=== PATIENT | female | born 1955 | race Caucasian/White ===

== ENCOUNTER 2017-03-18 09:08 | Outpatient (CLI) | payer OTHER ==
--- OUTSIDE RECORDS SUMMARY | 2017-03-27 13:38 | XMS | Clinical Summary ---
:1955 Author Organization [facility] Address [address] [place] [address] Phone Care Team Providers Name Role Phone , Primary Care Provider Unavailable Allergies Not on File Current Medications Not on file Active Problems Not on file Social History Tobacco Use Types Packs/Day Years Used Date Never Assessed Sex Assigned at Date Recorded Not on file Last Filed Vital Signs Not on file Plan of Treatment Not on file Results Not on filefrom Last 3 Months
--- NOTE | 2017-04-06 16:17 | MMO ---
BILATERAL MAMMOGRAMS 03/18/17 HISTORY: Screening mammography. COMPARISON: Prior outside studies from [facility] dated 03/14/12. FINDINGS: Heterogeneously dense fibroglandular tissue and benign appearing calcifications are again demonstra luda. Multiple partially obscured oval and lobular isodense nodules of varying size throughout each breast are stable and consistent with a benign process. Metallic marker in the left breast indicates region of prior biopsy. There is no new dominant mass or suspicious calcifications. The study was evaluated with the assistance of computer aided detection. IMPRESSION: BI-RADS 2: Benign Finding(s) Routine annual screening mammography (for women over age 40). POS: [facility]
== END 2017-03-18 09:09 | disposition home or self-care (01) ==
LOC: MAMMO 09:08
PROVIDERS: ATTEND Family Medicine
DX: Z12.31 Encounter for screening mammogram for malignant neoplasm of breast (principal)
CPT/HCPCS: 77067; G0202

== ENCOUNTER 2017-07-12 10:42 | Outpatient (CLI) | payer OTHER | END 2017-07-12 10:43 | disposition home or self-care (01) | LOC: BICMAMMO 10:42 | PROVIDERS: ATTEND Obstetrics & Gynecology | DX: Z13.820 Encounter for screening for osteoporosis (principal); Z78.0 Asymptomatic menopausal state | CPT/HCPCS: 77080 ==

== ENCOUNTER 2017-10-21 09:07 | Outpatient (CLI) | payer OTHER ==
--- NOTE | 2017-10-21 12:30 | RAD ---
BARIUM SWALLOW: HISTORY: Gastroesophageal reflux disease. The patient has the sensation of things getting stuck in her throat . COMPARISON: None. FINDINGS: A double contrast barium swallow/esophagram was performed. Esophageal motility is slightly delayed. No mucosal abnormality is seen in the esophagus. No hiatal hernia is seen. A 13 mm barium tablet w as administered, which temporarily stayed in the distal esophagus. Eventually, this was able to be p assed into the stomach, after giving the thin barium. Severe gastroesophageal reflux was seen during the examination, to the level of the proximal thoracic esophagus. POS: [facility]
== END 2017-10-21 09:08 | disposition home or self-care (01) ==
LOC: RAD 09:07
PROVIDERS: ATTEND Family Medicine
DX: K21.9 Gastro-esophageal reflux disease without esophagitis (principal)
CPT/HCPCS: 74220

== ENCOUNTER 2018-04-24 13:14 | Outpatient (CLI) | payer OTHER | END 2018-04-24 13:15 | disposition home or self-care (01) | LOC: BICMAMMO 13:14 | PROVIDERS: ATTEND Obstetrics & Gynecology | DX: Z12.31 Encounter for screening mammogram for malignant neoplasm of breast (principal); R92.1 Mammographic calcification found on diagnostic imaging of breast; Z80.3 Family history of malignant neoplasm of breast; Z98.890 Other specified postprocedural states | CPT/HCPCS: 77063; 77067 ==

== ENCOUNTER 2018-08-22 21:12 | Emergency (ER) | payer OTHER ==
[2018-08-22] MEDS ORDERED: Lidocaine 1% 20 ML MDV ONE (21:36)
--- NOTE | 2018-08-22 22:01 | RAD ---
LEFT WRIST THREE VIEW: 08/22/18 HISTORY: Fall. COMPARISON: None. FINDINGS: There is an intra-articular fracture of the radial styloid process. This is a small fracture and invo lves about 10% of the articular surface. Mild increased radial inclination. There is negative ulnar variance with degenerative disease of the distal radioulnar joint. Advanced degenerative disease of the thumb carpometacarpal joint. IMPRESSION: Minimally displaced intra-articular fracture of the radial styloid process. POS: [facility]
[2018-08-22] MEDS ORDERED: Acetaminophen 500 MG TAB ONE (22:05)
--- NOTE | 2018-08-22 22:15 | CT ---
CT BRAIN WITHOUT CONTRAST 08/22/18 HISTORY: Fall with head injury. COMPARISON: None. FINDINGS: Subtle hypodensity along the right external capsule not definitively acute. No large volume territori al infarction. No hemorrhage. No midline shift or mass effect. No hydrocephalus. The calvarium is intact. The paranasal sinuses and mastoids are clear. Mild microvascular ischemic changes. Globes are intact. IMPRESSION: No acute posttraumatic intracranial sequela. Chronic findings. POS: [facility]
--- NOTE | 2018-08-22 22:17 | RAD ---
RIGHT FOOT THREE VIEW 08/22/18 HISTORY: Slip and fall. COMPARISON: None. FINDINGS: Moderate dorsum plantar calcaneal enthesophytes. Moderate hallux valgus deformity. No acute fracture or malalignment. IMPRESSION: No acute fracture or malalignment appreciated. POS: [facility]
--- NOTE | 2018-08-22 22:21 | CT ---
CT FACE WITHOUT CONTRAST: 08/22/18 HISTORY: Trip and fall. Laceration. COMPARISON: None. FINDINGS: Incomplete evaluation of ACDF hardware. Posterior disc osteophyte complex at C3-4. Moderate facet art hrosis. Mandible is intact. Nasal bones are intact. No orbital floor fracture. The medial orbital burns and l ateral orbital burns and lateral orbital burns are also intact. Orbital roofs are intact as well as t he orbital apices. There appears to be a left periorbital superficial scalp contusion. There is also a left infraorbital cheek contusion. Nasal bones are intact. IMPRESSION: Superficial soft tissue contusion as described without a fracture of the face. POS: [facility]
== END 2018-08-22 22:36 | disposition home or self-care (01) ==
LOC: SCSER 21:12
DX: S52.512A Displaced fracture of left radial styloid process, initial encounter for closed fracture (principal); S05.42XA Penetrating wound of orbit with or without foreign body, left eye, initial encounter; S90.31XA Contusion of right foot, initial encounter; K21.9 Gastro-esophageal reflux disease without esophagitis; Z79.899 Other long term (current) drug therapy; W19.XXXA Unspecified fall, initial encounter
CPT/HCPCS: 12013; 29125; 70450; 70486; J2001

== ENCOUNTER 2019-02-27 09:54 | Outpatient (CLI) | payer MEDICARE ==
--- NOTE | 2019-02-27 10:30 | BD ---
EXAM: DEXA bone density examination HISTORY: 63-year-old postmenopausal female for screening COMPARISON: None FINDINGS: L1--bone mineral density 1.121 g/sq cm; T score 1.2 L2--bone mineral density 1.148 g/sq cm; T score 1.1 L3--bone mineral density 1.202 g/sq cm; T score 1.1 L4--bone mineral density 1.165 g/sq cm; T score 0.9 Total L1-L4--bone mineral density 1.160 g/sq cm; T score 1.0 Left femoral neck--bone mineral density0.816; T score -0.3 Total proximal left femur--bone mineral density 1.040; T score 0.8 IMPRESSION: Normal bone density
== END 2019-02-27 09:55 | disposition home or self-care (01) ==
LOC: BICMAMMO 09:54
PROVIDERS: ATTEND Family Medicine
DX: Z13.820 Encounter for screening for osteoporosis (principal); Z78.0 Asymptomatic menopausal state
CPT/HCPCS: 77080